=== PATIENT | female | born 1945 ===

== ENCOUNTER 2024-11-13 08:00 | Inpatient (IN) | payer OTHER ==
[~2024-11-13] VITALS: Ht 149.9 cm; Wt 78.0 kg
[~2024-11-13 08:00] MED LIST: COZAAR100 MG; CRESTOR10 MG; FIORICET TABLET1 TAB; HYDROCHLOROTHIA25 MG; METOPROLOL SUCC25 MG
[2024-11-13] MEDS ORDERED: LUMIGAN2.5 M1 OP (08:51)
[2024-11-13] MEDS ORDERED: MULTIPLE VITAM1 EAC2 PO (08:51)
[2024-11-13] MEDS ORDERED: DORZOLAMIDE HCL10 ML OP (08:51)
[2024-11-13] MEDS ORDERED: FISH OIL 1,001000 MG PO (08:52)
[2024-11-13 08:54] VITALS: BP 150/70
[2024-11-13 09:18] LABS: HEMATOCRIT 38.9 % (36.0-45.00); HEMOGLOBIN 12.9 g/dL (12.0-15.00); MEAN CELL VOLUME 88.3 fL (80.00-100.00); MEAN CORPUSCULAR HEMOGLOBIN 29.3 pg (27.00-32.0); MEAN CORPUSCULAR HGB CONC 33.2 g/dl (32.0-36.0); PLATELET COUNT 243 K/uL (150-450); RED BLOOD COUNT 4.41 M/uL (4.00-6.00); RED CELL DISTRIBUTION WIDTH 13.7 % (11.5-14.5)
[2024-11-13 09:19] VITALS: BP 119/69
[2024-11-13 09:33] LABS: PH,URINE 5.5 (5.0-8.0); URINE APPEARANCE Turbid; URINE BILIRRUBIN Negative (NEGATIVE); URINE BLOOD Negative; URINE COLOR Dark Yellow; URINE GLUCOSE Negative (NEGATIVE); URINE KETONE Trace (NEGATIVE); URINE LEUKOCYTE Small; URINE NITRATE Negative; URINE PROTEIN 30 (NEGATIVE); URINE UROBILINOGEN 0.2 E.U./dl
[2024-11-13 09:34] LABS: INR 1.07; PARTIAL THROMBOPLASTIN TIME 26.8 SECONDS (22.0-34.0); PROTHROMBIN TIME 11.6 SECONDS (9.0-11.5)
[2024-11-13 09:36] LABS: URINE EPITHELIAL CELLS 69.3 uL (0.0-38.8); URINE RBC 87.2 uL (0.0-20.8); URINE WBC 83.7 uL (0.0-23.2)
[2024-11-13 10:06] LABS: URINE BACTERIA > 9821.5 uL (0.0-1933); URINE CRYSTALS FEW /HPF; URINE MUCUS MODERATE
[2024-11-13 10:15] LABS: ALBUMIN 3.7 gm/dL (3.4-5.0); BILIRUBIN TOTAL 0.37 mg/dL (0.3-1.2); CALCIUM 9.6 mg/dL (8.5-10.1); CHOL HDL RATIO 3.7 (0-5.0); CREATININE SERUM 0.76 mg/dL (0.55-1.02); GFR 73.41; POTASSIUM 3.84 mEq/L (3.5-5.1); TOTAL PROTEIN 7.7 gm/dL (6.4-8.2)
[2024-11-13 13:08] LABS: RH POSITIVE
[2024-11-21] MEDS ORDERED: CEFAZOLIN SODIUM 1,000 MG VIAL ONE (07:53)
[2024-11-21] MEDS ORDERED: TRANEXAMIC ACID 100MG/1ML (1000MG) AMPUL IV ONE (07:53)
[2024-11-21] MEDS ORDERED: KETOROLAC TROMETHAMINE 60 MG VIAL IM ONE (07:53)
[2024-11-21] MEDS ORDERED: VANCOMYCIN HCL 1,000 MG VIAL ONE (08:11)
[2024-11-21] MEDS ORDERED: POVIDONE-IODINE 118 ML BOTT TOP ONE (08:15)
[2024-11-21] MEDS ORDERED: ISOPROPYL ALCOHOL 30 ML OUNCE TOP ONE (09:00)
[2024-11-21] MEDS ORDERED: SUGAMMADEX SODIUM 200 MG/2 ML VIAL IV ONE (09:12)
[2024-11-21] MEDS ORDERED: MORPHINE SULFATE 4 MG/ML CARTRIDGE IV ONE (09:15)
[2024-11-21] MEDS ORDERED: MORPHINE SULFATE 4 MG/ML VIAL IV ONE (11:10)
[2024-11-21] MEDS ORDERED: MORPHINE SULFATE 4 MG/ML CARTRIDGE IV PRN ×2 (12:15)
[2024-11-21] MEDS ORDERED: OxyCODONE HCL 5 MG TABLET (ROXICODONE) PO PRN ×2 (12:15)
[2024-11-21] MEDS ORDERED: ONDANSETRON HCL 2 MG/ML VIAL IV PRN ×2 (12:15)
[2024-11-21] MEDS ORDERED: SODIUM CHLORIDE 0.45 % 1,000 ML IV SCH ×2 (12:15)
[2024-11-21] MEDS ORDERED: ENALAPRILAT DIHYDRATE 1.25 MG/ML VIAL IV PRN (15:30)
[2024-11-21] MEDS ORDERED: CEFAZOLIN SODIUM 1,000 MG VIAL IV SCH ×2 (17:00)
[2024-11-21] MEDS ORDERED: GABAPENTIN 300 MG CAPSULE PO SCH ×2 (17:00)
[2024-11-21 17:15] VITALS: BP 160/80; O2SAT 98
[2024-11-21] MEDS ORDERED: ACETAMINOPHEN 500 MG GEL..CAP PO SCH ×2 (18:00)
[2024-11-22 00:54] VITALS: BP 117/73; O2SAT 97
[2024-11-22 07:33] LABS: HEMATOCRIT 31.7 % (36.0-45.00); MEAN CELL VOLUME 87.4 fL (80.00-100.00); MEAN CORPUSCULAR HEMOGLOBIN 30.3 pg (27.00-32.0); MEAN CORPUSCULAR HGB CONC 34.6 g/dl (32.0-36.0); PLATELET COUNT 202 K/uL (150-450); RED BLOOD COUNT 3.63 M/uL (4.00-6.00)
[2024-11-22] MEDS ORDERED: PERCOCET 5-3251 EACH PO (07:58)
[2024-11-22] MEDS ORDERED: DUI500 PO (07:58)
[2024-11-22] MEDS ORDERED: ELIQUIS2.5 MG PO (07:58)
[2024-11-22 08:29] VITALS: BP 130/76; O2SAT 98
[2024-11-22] MEDS ORDERED: APIXABAN 2.5 MG TABLET PO SCH (09:00)
[2024-11-22] MEDS ORDERED: METOPROLOL SUCCINATE 25 MG TAB.SR.24H PO SCH (09:00)
[2024-11-22] MEDS ORDERED: HYDROCHLOROTHIAZIDE 25 MG TABLET PO SCH (09:00)
[2024-11-22] MEDS ORDERED: SENNOSIDES 1 TAB TABLET PO SCH ×2 (09:00)
[2024-11-22] MEDS ORDERED: LOSARTAN POTASSIUM 100 MG TABLET PO SCH (09:00)
[2024-11-22 16:00] VITALS: BP 159/72; O2SAT 91
[2024-11-22] MEDS ORDERED: VITAMIN B COMPLEX 1 EACH PO SCH (17:00)
[2024-11-22] MEDS ORDERED: Cyanocobalamin/Mecobalamin 1 TAB.SL SL SCH (17:00)
[2024-11-22] MEDS ORDERED: SOD FERRIC GLUC COMPLX/SUCROSE 62.5 MG/5 ML AMPUL IV SCH (17:00)
[2024-11-23 00:39] VITALS: BP 137/78; O2SAT 100
[2024-11-23 00:41] VITALS: BP 137/78; O2SAT 100
[2024-11-23 06:55] LABS: HEMATOCRIT 32.4 % (36.0-45.00); HEMOGLOBIN 11.1 g/dL (12.0-15.00); MEAN CELL VOLUME 87.1 fL (80.00-100.00); MEAN CORPUSCULAR HEMOGLOBIN 29.8 pg (27.00-32.0); MEAN CORPUSCULAR HGB CONC 34.2 g/dl (32.0-36.0); PLATELET COUNT 197 K/uL (150-450); RED BLOOD COUNT 3.71 M/uL (4.00-6.00); RED CELL DISTRIBUTION WIDTH 13.1 % (11.5-14.5)
[2024-11-23] MEDS ORDERED: IRON FUM,PS/FOLIC ACID/VITC/B3 1 CAP CAPSULE PO SCH ×2 (09:00)
[2024-11-23 10:31] VITALS: BP 151/77; O2SAT 100
== END 2024-11-23 15:27 | disposition home health service (06) | DRG 470 ==
LOC: O/R 11-21 05:44 → SURG 11-21 05:44 → SURH 11-21 08:00 → SURG 11-21 13:34
PROVIDERS: ADMIT Orthopaedic Surgery; ATTEND Orthopaedic Surgery
PROC: 0SRD0J9 Replacement of Left Knee Joint with Synthetic Substitute, Cemented, Open Approach (ICD-10-PCS; principal; 2024-11-21 12:30)
DX: M17.12 Unilateral primary osteoarthritis, left knee (principal); I10 Essential (primary) hypertension; E66.9 Obesity, unspecified; M81.0 Age-related osteoporosis without current pathological fracture